=== PATIENT | female | born 1995 ===

== ENCOUNTER 2022-10-25 09:22 | Emergency (ER) | payer OTHER, SELFPAY ==
[2022-10-25 10:01] VITALS: BP 117/64; PULSE 85; RESP 18; TEMP 36.6; O2SAT 98; BMI 31.6
--- NOTE | 2022-10-25 11:42 | ED_ITS ---
HPI - Ear Problem General Chief complaint: Ear Problems Stated complaint: ear pain Time Seen by Provider: 10/25/22 11:41 Source: patient and regional account director Mode of arrival: ambulatory Limitations: no limitations History of Present Illness HPI Narrative: 27 yo female presents to the ER for evaluation of bilateral ear pain, L>R for the last 1 week after going swimming 1 week ago. Hearing feels muffled. No drainage. No URI symptoms. No dizziness. MD Complaint: ear pain Location: bilateral Duration: constant Severity: moderate Relieving factors: nothing Exacerbating factors: position of head Context: recent swimming Discharge from ear: no Associated symptoms ear: decreased hearing Treatment prior to arrival: none Related Data Previous Rx's Medication Instructions Recorded amoxicillin 875 mg-potassium 1 tab PO BID #20 tabs 10/25/22 clavulanate 125 mg tablet Allergies Allergy/AdvReac Type Severity Reaction Status Date / Time No Known Allergies Allergy Verified 10/25/22 10:05 Review of Systems Review of Systems: Yes all other systems are reviewed and are negative Physical Exam Vital Signs: Vital Signs: Last Vital Signs Temp 97.9 F 10/25/22 10:01 Pulse 85 10/25/22 10:01 Resp 18 10/25/22 10:01 BP 117/64 10/25/22 10:01 Pulse Ox 98 10/25/22 10:01 O2 Del Method Room Air 10/25/22 10:01 BMI result Body Mass Index 31.6 Appearance: Alert. Oriented X3. No acute distress. HEENT: normal external inspection. right EAC with cerumen, partially obscuring TM which does not appear erythematous. left EAC with ?distal erythema and left TM is erythematous CVS: Normal heart rate and rhythm. Pulses normal. Respiratory: No respiratory distress. Skin: Skin warm and dry. Normal skin color. Normal skin turgor. No rashes. Extremities: normal inspection x4 Neuro: Oriented X 3. grossly normal, nonfocal Medical Decision Making Medical Decision Making MDM Narrative: 27 yo female presents to the ER for evaluation of bilateral ear pain, L>R for the last 1 week after going swimming 1 week ago. Exam is c/w possible AOM with erythema of EAC and TM. No mastoid tenderness. Will treat with augmentin. stable for d/c home. Differential Diagnosis Differential Diagnoses: The differential diagnosis associated with the presentation includes acute otitis media, actue otitis externa, mastoiditis, sinusitis Prescription Management I considered prescription management with: Antibiotic Critical Care Time Critical Care Time Critical Care Time: No Discharge Plan Discharge Clinical Impression: Otitis media Patient Disposition: Home, Self-Care Instructions: Ear Infection (ED) Additional Instructions: take the prescribed antibiotic as directed, complete the entire Prescriptions: New amoxicillin-pot clavulanate 875-125 mg tablet 1 tab PO BID Qty: 20 0RF Print Language: [place]
== END 2022-10-25 12:00 | disposition home or self-care (01) ==
LOC: HO.ED 11:58
PROVIDERS: Emergency Provider Emergency Medicine
DX: H66.92 Otitis media, unspecified, left ear (principal)
CPT/HCPCS: 99282; 99283